=== PATIENT | female | born 1965 | race African-American/Black ===

== ENCOUNTER → 2016-09-03 | Outpatient (CLI) | payer OTHER ==
[~2016-09-03] MED LIST: COLACE100 MG PO; LISINOPRIL20 MG PO; NORCO 5-325 TA1 EACH PO
== END ==
LOC: RAD 11:02
DX: Z12.31 Encounter for screening mammogram for malignant neoplasm of breast (principal)

== ENCOUNTER → 2018-06-01 | Outpatient (CLI) | payer OTHER | LOC: RAD 11:13 | DX: Z12.31 Encounter for screening mammogram for malignant neoplasm of breast (principal) ==

== ENCOUNTER → 2020-08-02 | Outpatient (CLI) | payer OTHER | LOC: RAD 13:59 | PROVIDERS: ATTEND Family Medicine | DX: Z12.31 Encounter for screening mammogram for malignant neoplasm of breast (principal) ==